=== PATIENT | male | born 1965 | race Caucasian/White ===

== ENCOUNTER 2016-12-05 17:02 | Emergency (ER) | payer SELFPAY ==
[2016-12-05 17:12] VITALS: BP 142/96; PULSE 84; O2SAT 95
[2016-12-05] MEDS ORDERED: Ciloxan OPHTH OP ONE (17:14)
[2016-12-05] MEDS ORDERED: Acular OPTH SOL OP ONE ×2 (17:14→17:16)
[2016-12-05] MEDS ORDERED: Fluor-I-Strip/Ful-Flo OP ONE ×2 (17:14→17:16)
[2016-12-05] MEDS ORDERED: Eye-Stream Solution OP ONE (17:15)
[2016-12-05] MEDS ORDERED: TETRACAINE 0.5% STERI-UNIT SOL OP ONE (17:16)
[2016-12-05] MEDS ORDERED: Eye-Stream Solution ONE (17:16)
[2016-12-05] MEDS ORDERED: Ciloxan OPHTH ONE (17:16)
[2016-12-05] MEDS: Visine OPHTHALMIC 15 ML OP ONE ×2 (17:33→17:35)
[2016-12-05] MEDS ORDERED: TETRACAINE 0.5% STERI-UNIT SOL OP STA (17:34)
--- NOTE | 2016-12-05 17:34 | ERPHSYRPT ---
- History of Present Illness Time Seen by Provider: 12/05/16 17:11 Source: patient, other ([facility] care PATTERN CHANGER) Patient Subjective Stated Complaint: rt eye pain/drainage Triage Nursing Assessment: woke on on november 22 with red area to outer rt sclera and states the pressure is getting worse and the redness is getting worse. c/o severe pressure to rt eye with bending over or coughing. matted shut in the morning. clear thick drainage worse at night and in the morning. denies injury or any vision changes. Physician History: CC: right eye red Hx: 50 y/o patient of Dr Horne. He has noted some red blood vessels in right lateral eye for 2 weeks. A little worse. Sometimes itches at night. No known FB or injury. No vision complaints. No other concerns. [facility] to [facility] and was sent to ER. Timing/Duration: week(s) (2) Location: right eye Severity: mild Apparent Injury: no Allergies/Adverse Reactions: acetaminophen [From Vicodin] Adverse Reaction (Verified 12/05/16 17:11) hydrocodone [From Vicodin] Adverse Reaction (Verified 12/05/16 17:11) Home Medications: No Home Meds 1 ea MC UD 12/05/16 [History] Hx Tetanus, Diphtheria Vaccination/Date Given: Yes Hx Influenza Vaccination/Date Given: No Hx Pneumococcal Vaccination/Date Given: No Immunizations Up to Date: Yes - Review of Systems Constitutional: No Fever, No Chills Eyes: Discharge (watery), Eye Redness (blood vessels), Itchy (at night), Photophobia, Tearing, No Vision Changes, No Double Vision, No Foreign Body Sensation - Past Medical History Pertinent Past Medical History: Yes Neurological History: Migraines Other Medical History: hep c - Past Surgical History Past Surgical History: Yes Other Surgical History: rt index finger - Social History Smoking Status: Current every day smoker Exposure to second hand smoke: Yes Drug Use: marijuana Patient Lives Alone: No - Nursing Vital Signs Nursing Vital Signs: Initial Vital Signs Temperature 97.9 F Temperature Source Oral Pulse Rate 84 Respiratory Rate 18 Blood Pressure [Right Arm] 142/96 Pain Intensity 5 - Physical Exam General Appearance: alert Vision Acuity Degree Evaluation Phase: Corrected Vision Acuity Right Eye: 20/30 Vision Acuity Left Eye: 20/30 Ears, Nose, Throat Exam: normal ENT inspection, moist mucous membranes Neck Exam: normal inspection, non-tender, supple Respiratory Exam: normal breath sounds, lungs clear Cardiovascular Exam: regular rate/rhythm Neurologic: alert, oriented x 3, cooperative, nml station & gait Skin Exam: warm, dry, No rash SpO2: 95 Oxygen Delivery: Room Air Comments: Eyes: PERRL EOMI Right eye has lateral heaped and inflamed superficail conjunctival blood vessels. No FB. Lid everted. No fluoroscein uptake. IOP 21 by tonopen on right. This appears to be episcleritis. - Course Nursing assessment & vital signs reviewed: Yes Ordered Tests: Active Orders 24 hr Category Date Time Status Visual Acuity STAT Care 12/05/16 17:14 Active Medication Summary Discontinued Medications Generic Name Dose Route Start Last Admin Trade Name Freq PRN Reason Stop Dose Admin Ciprofloxacin 2.5 ml 12/05/16 17:14 Ciloxan Ophth OP 12/05/16 17:15 STAT ONE Ciprofloxacin Confirm 12/05/16 17:16 Ciloxan Ophth Administered 12/05/16 17:17 Dose 2.5 ml .ROUTE .STK-MED ONE Eye Irrigation Solution 15 ml 12/05/16 17:15 Eye-Stream Solution OP 12/05/16 17:16 STAT ONE Eye Irrigation Solution Confirm 12/05/16 17:16 Eye-Stream Solution Administered 12/05/16 17:17 Dose 30 ml .ROUTE .STK-MED ONE Fluorescein Sodium 1 mg 12/05/16 17:14 Qolyl-S-Geyyb/Ful-Ramon OP 12/05/16 17:15 STAT ONE Fluorescein Sodium Confirm 12/05/16 17:16 Uuipi-X-Tdqkb/Ful-Ramon Administered 12/05/16 17:17 Dose 1 mg OP .STK-MED ONE Ketorolac Tromethamine 5 ml 12/05/16 17:14 Acular Opth Lia OP 12/05/16 17:15 STAT ONE Ketorolac Tromethamine Confirm 12/05/16 17:16 Acular Opth Lia Administered 12/05/16 17:17 Dose 5 ml OP .STK-MED ONE Tetracaine HCl Confirm 12/05/16 17:16 Tetracaine 0.5% Steri-Unit Lia Administered 12/05/16 17:17 Dose 4 ml OP .STK-MED ONE - Progress Progress Note: 12/05/16 17:31 Will Rx po claritin. Rx cipro and acular eye gtts. Advised see cap lining machine operator in 1-[address] Horne for follow up. Counseled pt/family regarding: diagnosis, need for follow-up - Departure Time of Disposition: 17:32 Departure Disposition: Home Clinical Impression: Episcleritis of right eye Condition: Stable Critical Care Time: No Referrals: REINA HORNE MD [Primary Care Provider] - NATHAN FLORES [NON-STAFF PHY W/O PRIVILEGES] - Instructions: Eye Pain Additional Instructions: Use cipro eye drop every 6 hours. Use ketorolac eye drop every 6 hours. Do not rub eye. Call to see after school program teacher in 1-2 days. Follow up with Dr Horne.
== END 2016-12-05 17:41 | disposition home or self-care (01) ==
LOC: ED 17:02
DX: H15.101 Unspecified episcleritis, right eye (principal)

== ENCOUNTER 2018-11-07 08:24 | Day surgery (SDC) | payer SELFPAY ==
--- NOTE | 2018-11-05 14:28 | HP ---
DATE OF SURGERY: 11/07/2018 ANTICIPATED PROCEDURE: Screening colonoscopy. HISTORY OF PRESENT ILLNESS: Age 53 with no symptoms. No family history. Presents for screening. PAST MEDICAL HISTORY: ALLERGIES: NONE. MEDICATIONS: Per the chart. PAST SURGICAL HISTORY: None. SOCIAL HISTORY: One half pack per day. ETOH occasional. FAMILY HISTORY: Diabetes. REVIEW OF SYSTEMS: Negative. PHYSICAL EXAMINATION: VITAL SIGNS: Normal. CHEST: Clear. COR: Regular. ABDOMEN: No palpable organomegaly or mass. IMPRESSION: Screening. PLAN: Colonoscopy.
[2018-11-07] MEDS ORDERED: DIPRIVAN 200 MG/20 ML IV ONE (08:25)
[2018-11-07] MEDS ORDERED: Lactated Ringers 1,000 ML IV SCH (09:00)
[2018-11-07] MEDS ORDERED: GlucaGen 1 MG ONE (11:40)
[2018-11-07 12:38] VITALS: BP 139/78; PULSE 69; O2SAT 98
--- NOTE | 2018-11-08 08:13 | OP ---
SURGERY DATE/TIME: 11/07/2018 1128 PREOPERATIVE DIAGNOSIS: Screening. POSTOPERATIVE DIAGNOSIS: Four polyps. PROCEDURE: Colonoscopy complete to cecum with hot biopsy polypectomy x4. SURGEON: Matthew Naranjo M.D. ANESTHESIA: MAC. COMPLICATIONS: None. CONDITION: Stable. INDICATION: A patient requiring evaluation. DESCRIPTION OF PROCEDURE: Taken to endoscopy. MAC sedation provided. Scope advanced to the cecum. Circumferential withdrawal four polyps were taken either on upward or withdrawal and they were taken with hot biopsy forceps. A total of four. They were marked appropriately for location. Otherwise the colon was satisfactory. There was scant diverticulosis. There was no AV malformation. There was scant hemorrhoidal tissue. IMPRESSION: Successful polypectomy x4. He will return in two weeks for his laboratory results and we will schedule him for three years for follow up of polyps.
== END 2018-11-07 12:49 | disposition home or self-care (01) ==
LOC: SDC 08:24
PROVIDERS: ATTEND Surgery
DX: K63.5 Polyp of colon (principal); Z12.11 Encounter for screening for malignant neoplasm of colon; Z83.3 Family history of diabetes mellitus
CPT/HCPCS: 82962; 88305; J1610; J2704

== ENCOUNTER 2019-02-13 06:27 | Day surgery (SDC) | payer MEDICAID ==
--- NOTE | 2019-02-10 11:02 | HP ---
DATE OF SURGERY: 02/13/2019 ANTICIPATED PROCEDURE: Left inguinal hernia with mesh. HISTORY OF PRESENT ILLNESS: The patient has a symptomatic left inguinal hernia and presents for repair. PAST MEDICAL HISTORY: ALLERGIES: VICODINE, HYDROCODONE. MEDICATIONS: None. PAST SURGICAL HISTORY: None. SOCIAL HISTORY: Negative. FAMILY HISTORY: Negative. REVIEW OF SYSTEMS: Diabetes. PHYSICAL EXAMINATION: VITAL SIGNS: Normal. CHEST: Clear. COR: Regular. ABDOMEN: Left inguinal hernia. IMPRESSION: Symptomatic left inguinal hernia. PLAN: Repair.
[2019-02-13] MEDS ORDERED: DIPRIVAN 200 MG/20 ML IV ONE (06:28)
[2019-02-13] MEDS ORDERED: BRIDION 200MG/2ML IV ONE (06:28)
[2019-02-13] MEDS ORDERED: Versed 2 MG/2 ML Injection IV ONE (06:28)
[2019-02-13] MEDS ORDERED: SUBLIMAZE 250 MCG/5 ML IJ ONE (06:28)
[2019-02-13] MEDS ORDERED: Zemuron 100 MG/10 ML IV ONE (06:28)
[2019-02-13] MEDS ORDERED: Lactated Ringers 1,000 ML IV ONE (07:09)
[2019-02-13] MEDS ORDERED: Sensorcaine 0.25% 10 ML ONE (07:09)
[2019-02-13] MEDS ORDERED: CEFAZOLIN 2 GM-D5W BAG** 2 GM/50 ML ML IV SCH (07:30)
[2019-02-13] MEDS ORDERED: Lactated Ringers 1,000 ML IV SCH (07:30)
[2019-02-13] MEDS ORDERED: KEFZOL 1 GM ONE (08:36)
[2019-02-13] MEDS ORDERED: TORAdol 30 mg Injection ONE (09:40)
[2019-02-13] MEDS ORDERED: SUBLIMAZE 100 MCG/2 ML ONE (09:49)
--- NOTE | 2019-02-13 10:07 | OP ---
SURGERY DATE/TIME: 02/13/2019 0826 PREOPERATIVE DIAGNOSIS: Symptomatic left inguinal hernia. POSTOPERATIVE DIAGNOSIS: Left inguinal hernia sliding, direct. PROCEDURE: Left inguinal herniorrhaphy with mesh. SURGEON: Matthew Naranjo M.D. ANESTHESIA: General. COMPLICATIONS: None. CONDITION: Stable. INDICATION: A patient with symptomatic left inguinal hernia. Marked preoperatively. DESCRIPTION OF PROCEDURE: Taken to surgery. General anesthetic. Routine prep and drape. Curvilinear incision. 0.25% Marcaine. Time out performed. Taken down to the external oblique. External oblique opened along its fibers. Ilioinguinal nerve preserved. Cord skeletonized. There was direct hernia defect 1.5 cm. A 3 inch hernia pushed through this. It was reduced. It was tucked back in with 0 Prolene. The floor was reinforced with a 1 x 4 mesh in Nima's ligament type fashion making sure not to entrap any underlying nerve fibers. Internal ring was 1 clamp tight. Hemostasis satisfactory. Cord laid back in natural position. External oblique closed with 0 Vicryl. Mohsen fascia closed with 2-0 Vicryl. Skin closed with 4-0 Vicryl. Sterile dressing applied. The patient tolerated the procedure satisfactorily.
[2019-02-13] MEDS ORDERED: MORPHINE SULFATE 4 MG INJ IV PRN (10:31)
[2019-02-13] MEDS ORDERED: MORPHINE SULFATE 4 MG INJ ONE (10:33)
[2019-02-13 11:02] VITALS: BP 130/83; PULSE 70; O2SAT 95
== END 2019-02-13 11:22 | disposition home or self-care (01) ==
LOC: SDC 06:27
PROVIDERS: ATTEND Surgery
DX: K40.90 Unilateral inguinal hernia, without obstruction or gangrene, not specified as recurrent (principal)
CPT/HCPCS: 49525; C1781; J0690; J1885; J2250; J2270; J2704; J3010

== ENCOUNTER 2021-07-12 23:52 | Emergency (ER) | payer BC ==
[2021-07-13] MEDS ORDERED: Ativan 1 MG PO ONE (00:10)
[2021-07-13] MEDS ORDERED: Ativan 1 MG ONE (00:17)
--- NOTE | 2021-07-13 00:24 | ERPHSYRPT ---
- History of Present Illness Time Seen by Provider: 07/13/21 00:08 Source: patient Exam Limitations: no limitations Patient Subjective Stated Complaint: anxiety and closterphobic due to the cast being on her left arm Triage Nursing Assessment: pt having an anxiety attack due to lt arm being casted up to elbow today. Pt had surgery on 07/01/21 and had a splint on. Pt followed up with Dr. Osman today and he put a cast on it and sling. Tonight around 2100, pt was anxious due to the cast. Pt able to move fingers. Physician History: 55 years old male presented in the ER with chief complaint of anxiety symptoms of the last 2 to 3 hours. Patient reports she has a history of left elbow surgery, was in splint and yesterday orthopod gave him option of keeping splint versus cast which he opted for cast. He came home and is having anxiety with his arm being in the cast and inability to move his hand/arm. Patient states "I am very claustrophobic person". Reports he has been having multiple attacks of anxiety which does get better with deep breathing. Denies any chest pain or palpitations associated with it. Patient wants cast to be removed. Did not have any difficulty movements of fingers or swelling of hand/arm. Took his routine pain medication and is not any worse than usual. Denies abrupt stoppage of any medication or start of any new medication. Denies any suicidal or homicidal ideations. Timing/Duration: hour(s) (3), constant, gradual onset, worse Severity: moderate Associated Symptoms: denies symptoms Allergies/Adverse Reactions: acetaminophen [From Vicodin] Adverse Reaction (Verified 07/13/21 00:14) hydrocodone [From Vicodin] Adverse Reaction (Verified 07/13/21 00:14) makes very sick Home Medications: No Home Meds [No Home Meds] 1 ea UD 12/05/16 [History] Hx Tetanus, Diphtheria Vaccination/Date Given: No Hx Influenza Vaccination/Date Given: No Hx Pneumococcal Vaccination/Date Given: No Immunizations Up to Date: No Travel Risk - International Travel Have you traveled outside of the country in past 3 weeks: No - Coronavirus Screening Are you exhibiting any of the following symptoms?: No Close contact with a COVID-19 positive Pt in past 14-21 Days: No - Vaccine Status Have you recieved a Covid-19 vaccination: No - Review of Systems Constitutional: No Symptoms Eyes: No Symptoms Ears, Nose, & Throat: No Symptoms Respiratory: No Symptoms Cardiac: No Symptoms Abdominal/Gastrointestinal: No Symptoms Genitourinary Symptoms: No Symptoms Musculoskeletal: Joint Pain Skin: No Symptoms Neurological: No Symptoms Psychological: Anxiety Endocrine: No Symptoms Hematologic/Lymphatic: No Symptoms - Past Medical History Pertinent Past Medical History: Yes Neurological History: Migraines ENT History: No Pertinent History Cardiac History: No Pertinent History Respiratory History: No Pertinent History Endocrine Medical History: No Pertinent History Musculoskeletal History: No Pertinent History GI Medical History: No Pertinent History History: No Pertinent History Psycho-Social History: No Pertinent History Male Reproductive Disorders: No Pertinent History Other Medical History: hep c hx. States Viral free for five years - Past Surgical History Past Surgical History: Yes Neuro Surgical History: No Pertinent History Cardiac: No Pertinent History Respiratory: No Pertinent History Gastrointestinal: Hernia Repair Genitourinary: No Pertinent History Musculoskeletal: Orthopedic Surgery Male Surgical History: No Pertinent History Other Surgical History: right index finger under local, colonoscopy under MAC. lt carpal tunnel, 2 tendons fixed at elbow and nerves - Social History Smoking Status: Current every day smoker How long have you smoked: 40 yrs Exposure to second hand smoke: Yes Drug Use: marijuana Patient Lives Alone: No - Nursing Vital Signs Nursing Vital Signs: Initial Vital Signs Pulse Rate 94 H 07/12/21 23:52 Respiratory Rate 24 07/12/21 23:52 Blood Pressure 153/124 07/12/21 23:52 O2 Sat by Pulse Oximetry 98 07/12/21 23:52 Pain Scale Pain Intensity 0 - Physical Exam General Appearance: no apparent distress, alert, anxiety Eye Exam: PERRL/EOMI, eyes nml inspection Ears, Nose, Throat Exam: normal ENT inspection, TMs normal, pharynx normal Neck Exam: normal inspection, non-tender, supple, full range of motion Respiratory Exam: normal breath sounds, lungs clear Cardiovascular Exam: regular rate/rhythm, normal heart sounds Back Exam: normal inspection Extremity Exam: normal inspection, normal range of motion, pelvis stable, other (Long left upper extremity splint from hand to mid arm. No swelling of fingers, intact range of motion of fingers. Good cap refill less than 2 seconds.) Neurologic Exam: alert, oriented x 3, cooperative, promotions coordinator II-XII nml as tested, nml cerebellar function, nml station & gait, sensation nml, No normal mood/affect (Anxious) Skin Exam: normal color SpO2 Interpretation: normal SpO2: 98 O2 Delivery: Room Air Ordered Tests: Medication Summary Discontinued Medications Generic Name Dose Route Start Last Admin Trade Name Quinton PRN Reason Stop Dose Admin Lorazepam 2 mg 07/13/21 00:10 Lorazepam 1 Mg Tablet PO 07/13/21 00:11 STAT ONE - Progress Progress: improved Progress Note: 07/13/21 patient is counseled that we cannot remove his cast and will have to contact his primary orthopedic surgeon. Patient symptoms are consistent with anxiety. Does not have any chest pain palpitations or shortness of breath. He just want to take his arm out of the cast. Is given Ativan, reevaluation feeling better. He is being discharged with outpatient follow-up with orthopedic surgery. Discussed signs symptoms of worsening needing return to ER which he seems understanding. Counseled pt/family regarding: diagnosis, need for follow-up - Departure Departure Disposition: Home Clinical Impression: Anxiety attack Condition: Stable Critical Care Time: No Referrals: REINA HORNE MD [Primary Care Provider] - (Tomorrow for reevaluation) ARMANDO OSMAN [NON-STAFF PHY W/O PRIVILEGES] - (Tomorrow for reevaluation) Instructions: Anxiety, Adult (DC) Additional Instructions: Follow-up with your primary orthopedic surgeon for reevaluation tomorrow morning about removal of cast and being placed in a splint. Return to ER for worsening anxiety or if have any suicidal/homicidal ideation, chest pain palpitations or shortness of breath.
[2021-07-13 01:00] VITALS: BP 146/97; PULSE 90; O2SAT 97
== END 2021-07-13 01:05 | disposition home or self-care (01) ==
LOC: ED 23:52
DX: F41.9 Anxiety disorder, unspecified (principal)
CPT/HCPCS: 99283; A9270-GY

== ENCOUNTER 2023-03-03 02:31 | Emergency (ER) | payer BC ==
[2023-03-03] MEDS ORDERED: Sodium Chloride 0.9% 1000 ML 1,000 ML IV ONE (02:32)
[2023-03-03] MEDS ORDERED: EPINEPHRINE ABBOJECT 1 MG/10 ML IV ONE (02:32)
[2023-03-03 02:41] LABS: Absolute Neutrophil Ct (ANC) 4.48 x10^3/uL (1.4-6.9); BASOPHIL % 0.7 % (0.0-0.4); Basophil (Absolute #) 0.07 x10^3/uL (0-0.4); Eosinophil % 0.9 % (0.00-5.0); Eosinophil (Absolute #) 0.09 x10^3/uL (0-0.5); Hematocrit 44.8 % (42-50); IMMATURE GRAN # 0.31 x10^3u/L (0.00-0.03); IMMATURE GRAN % 3.1 % (0.00-0.4); Lymphocyte (Absolute #) 4.81 x10^3/uL (1.0-4.6); Lymphocytes % 47.3 % (24.0-44.0); Mean Cell Volume 98.7 fL (78-100); Mean Corpuscular Hemoglobin 30.8 pg (26-32); Mean Corpuscular Hgb Concent. 31.3 g/dL (32-36); Mean Platelet Volume 10.7 fL (7.5-11.0); Monocytes % 3.9 % (0.0-12.0); NUCLEATED RBC # 0.03 x10^3u/L (0.00-0.01); NUCLEATED RBC % 0.3 % (0.00-0.1); Neutrophil % 44.1 % (36.0-66.0); Platelet Count 139 x10^3/uL (150-450); Red Blood Count 4.54 x10^6/uL (4.1-5.6); Red Cell Distribution Width 12.1 % (11.5-14.0); White Blood Count 10.2 x10^3/uL (4.0-10.5)
[2023-03-03] MEDS ORDERED: NOREPINEPHRINE 8 MG/250 ML-D5W 8 MG/250 ML PLAST..BAG IV ONE (02:50)
[2023-03-03] MEDS ORDERED: Sodium Chloride 0.9% 1000 ML 1,000 ML ONE (02:51)
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
[2023-03-03 02:55] LABS: ALBUMIN 3.5 g/dL (3.5-5.0); ALKALINE PHOSPHATASE 60 U/L (38-126); BLOOD UREA NITROGEN 14 mg/dL (9-20); CHLORIDE 107 mmol/L (98-107); Calcium 8.4 mg/dL (8.4-10.2); Carbon Dioxide 19 mmol/L (22-30); Creatinine 1 1.08 mg/dL (0.66-1.25); EST GLOMERULAR FILTRATION RATE > 60.0 ML/MIN; ETHYL ALCOHOL < 10 mg/dL (0-10); Glucose 125 mg/dL (74-106); Potassium 4.7 mmol/L (3.5-5.1); SGOT/AST 105 U/L (17-59); SGPT/ALT 87 U/L (0-50); SODIUM 143 mmol/L (137-145); Total Protein 6.1 g/dL (6.3-8.2)
[2023-03-03] MEDS ORDERED: KEFZOL 1 GM/50 ML PREMIX** 1 GM/50 ML IVPB IV STA (02:56)
[2023-03-03 03:13] LABS: INR 1.16 (0.8-3.0); PROTIME 12.5 SECONDS (9.4-12.5); PTT 41.6 SECONDS (25.1-36.5)
[2023-03-03] MEDS ORDERED: Sodium Chloride 0.9% 100 ML ONE (03:41)
[2023-03-03] MEDS ORDERED: TRANEXAMIC ACID 1000 MG/10 ML ONE (03:41)
[2023-03-03 04:19] LABS: Appearance Cloudy (Clear); Bacteria None Seen /HPF (None Seen); Bilirubin Negative (Negative); Blood Large (Negative); Epithelial Cells Few /HPF (None Seen); Glucose, Urine Negative (Negative); Hyaline Casts NONE SEEN /LPF (0-2); Ketones Negative (Negative); Leukocyte Esterase Trace (Negative); Nitrite Negative (Negative); Ph 5.5 (4.6-8.0); Protein,Urine Dip 100 (Negative); RBC >100 /HPF (0-5); Specific Gravity 1.025 (1.005-1.030)
[2023-03-03 04:28] LABS: Barbiturate,Urine NEGATIVE (NEGATIVE); Benzodiazepine,Urine NEGATIVE (NEGATIVE); Cocaine,Urine NEGATIVE (NEGATIVE); Methadone,Urine NEGATIVE (NEGATIVE); Opiate,Urine NEGATIVE (NEGATIVE); PCP,Urine NEGATIVE (NEGATIVE); THC,Urine POSITIVE (NEGATIVE)
[2023-03-03 04:32] LABS: A-aADO2 540; ABG HEMOGLOBIN 8.6; ABG POTASSIUM 4.5 (3.5-5.1); ARTERIAL BLD GAS O2 SATURATION 99.4 % (95-100); ARTERIAL BLOOD GAS BASE EXCESS -17.2 (-2.0-2.0); ARTERIAL BLOOD GAS FIO2 100 %; ARTERIAL BLOOD GAS PCO2 46 mmHg (35-45); ARTERIAL BLOOD GAS PO2 116 mmHg (75-100); ARTERIAL BLOOD GAS pH 7.04 (7.35-7.45); CARBOXYHEMOGLOBIN 2.4 % THgb (0.0-6.9); HCO3- 12.4 (22-28); HGB O2 SAT 96.8 g/dF (94-100); Methhemoglobin 0.2 % (1.4-1.5); paO2 pAO1 0.18
[2023-03-03 04:33] LABS: ABG SITE LEFT FEMORAL; ARTERIAL BLD GAS TIDAL VOLUME 600 cc; ARTERIAL BLOOD GAS PEEP 5 cmH2O; ARTERIAL BLOOD GAS VENT MODE AC; ARTERIAL BLOOD GAS VENT RATE 20 /MIN
[2023-03-03 04:37] LABS: ADD URINE CULTURE? ORDERED SEPARATELY (NO)
[2023-03-03 04:55] LABS: Amphetamine,Urine POSITIVE (NEGATIVE)
[2023-03-03 05:11] LABS: CROSS MATCH (PRBC) UNCROSSMATCHED (COMPATIBLE)
--- NOTE | 2023-03-03 07:41 | XRAY ---
Indication: Endotracheal tube placement. Comparison: October 24, 2022 Limited portable chest does not completely include right lung. New endotracheal tube tip approximately 1.5 cm above nic. Remaining heart, left lung, and visualized bony thorax unremarkable.
--- NOTE | 2023-03-03 07:43 | XRAY ---
Indication: Endotracheal tube placement. Comparison: Taken earlier in the day Portable chest demonstrates endotracheal tube withdrawal with tip now approximately 3.5 cm above nic. Lungs underinflated accentuating cardiopulmonary structures. New mild left lung infiltrates versus atelectasis and small right effusion.
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
== END 2023-03-03 04:04 | disposition short-term general hospital (02) ==
LOC: ED 02:31
DX: I46.9 Cardiac arrest, cause unspecified (principal); S02.602A Fracture of unspecified part of body of left mandible, initial encounter for closed fracture; S02.601A Fracture of unspecified part of body of right mandible, initial encounter for closed fracture; S82.832A Other fracture of upper and lower end of left fibula, initial encounter for closed fracture; S42.432A Displaced fracture (avulsion) of lateral epicondyle of left humerus, initial encounter for closed fracture; S32.592A Other specified fracture of left pubis, initial encounter for closed fracture; S32.591A Other specified fracture of right pubis, initial encounter for closed fracture; V29.498A Other motorcycle driver injured in collision with other motor vehicles in traffic accident, initial encounter; R40.4 Transient alteration of awareness; E11.9 Type 2 diabetes mellitus without complications
CPT/HCPCS: 31500; 36000; 36415; 36430; 36600; 70150; 71045; 72170; 73060; 73070; 73590; 73610; 80053; 80307; 81001; 82077; 82375; 82803; 83605; 85025; 85610; 85730; 86922; 87086; 92950; 94002; 96365; 96374; 99285; 99291; P9016; J0171; J0690; L0172